=== PATIENT | male | born 1940 | race Hispanic/Latino ===

== ENCOUNTER → 2018-06-19 | Outpatient (CLI) | payer OTHER ==
[~2018-06-19] MED LIST: ATOR20TA65 PO; BENA20TA10 PO; CARV25TA PO; CLON0.2T PO; COSO10OS OU; GABA-529 PO; GLIP10TA9 PO; HYDR-4154 PO; HYDR12.54 PO; LEVO100T12 PO; LINA1TAB5 PO; TAMS0.4C32 PO; XALA2.5OS OU
== END | disposition home or self-care (01) ==
LOC: SHCH 11:16
PROVIDERS: ATTEND Internal Medicine Cardiovascular Disease
DX: I65.23 Occlusion and stenosis of bilateral carotid arteries (principal)
CPT/HCPCS: 93880

== ENCOUNTER → 2018-06-26 | Outpatient (CLI) | payer OTHER | END | disposition home or self-care (01) | LOC: SHCH 09:06 | PROVIDERS: ATTEND Internal Medicine Cardiovascular Disease | DX: I11.9 Hypertensive heart disease without heart failure (principal) | CPT/HCPCS: 93306 ==

== ENCOUNTER → 2019-05-25 | Outpatient (CLI) | payer OTHER | END | disposition home or self-care (01) | LOC: SHCH 09:24 | PROVIDERS: ATTEND Internal Medicine Cardiovascular Disease | DX: I65.23 Occlusion and stenosis of bilateral carotid arteries (principal) | CPT/HCPCS: 93880 ==

== ENCOUNTER → 2020-11-07 | Outpatient (CLI) | payer MEDICARE | END | disposition home or self-care (01) | LOC: SHCH 13:28 | PROVIDERS: ATTEND Internal Medicine Cardiovascular Disease | DX: R09.89 Other specified symptoms and signs involving the circulatory and respiratory systems (principal) | CPT/HCPCS: 93880 ==

== ENCOUNTER → 2021-05-24 | Outpatient (CLI) | payer MEDICARE ==
[~2021-05-24] MED LIST changes: +BENA-8 PO; -BENA20TA10 PO
== END | disposition home or self-care (01) ==
LOC: SHCH 11:01
PROVIDERS: ATTEND Internal Medicine Cardiovascular Disease
DX: I65.23 Occlusion and stenosis of bilateral carotid arteries (principal)
CPT/HCPCS: 93880

== ENCOUNTER → 2021-08-23 | Outpatient (CLI) | payer MEDICARE ==
[~2021-08-23] MED LIST changes: +IOHEXOL-350 50ML VIAL IV ONE
== END | disposition home or self-care (01) ==
LOC: RAH 07:39
PROVIDERS: ATTEND Internal Medicine Cardiovascular Disease
DX: I65.22 Occlusion and stenosis of left carotid artery (principal)
CPT/HCPCS: 70498; Q9967

== ENCOUNTER 2022-05-31 21:30 | Inpatient (IN) | payer MEDICARE ==
[~2022-05-31] VITALS: Ht 172.7 cm; Wt 77.8 kg
[~2022-05-31 21:30] MED LIST changes: -IOHEXOL-350 50ML VIAL IV ONE
[2022-05-31 22:26] LABS: BASOPHILS % (AUTO) 0.8 % (0.0-5.0); EOSINOPHILS % (AUTO) 5.5 % (0.0-8.0); HEMATOCRIT 34.1 % (42-54); LYMPHOCYTES % (AUTO) 26.6 % (21.0-51.0); MEAN CORPUSCULAR HEMOGLOBIN 28.1 pg (27.0-33.0); MEAN CORPUSCULAR VOLUME 87.9 fL (79-99); MONOCYTES % (AUTO) 8.5 % (3.0-13.0); NEUTROPHILS % (AUTO) 58.5 % (40.0-77.0); PLATELET COUNT (AUTO) 213 K/uL (130-400); RED BLOOD CELL COUNT(AUTO) 3.88 MIL/uL (4.50-6.20); RED CELL DISTRIBUTION WIDTH 14.7 % (11.0-15.5); WHITE BLOOD COUNT (AUTO) 7.2 K/uL (4.8-10.8)
[2022-05-31] MEDS ORDERED: HYDRALAZINE 20MG/ML VIAL IV ONE (22:30)
[2022-05-31 22:35] LABS: CREATININE 1.2 mg/dL (0.5-1.5); POTASSIUM 4.6 mmol/L (3.5-5.1)
[2022-05-31 22:37] LABS: INR 0.96 (0.85-1.15); PROTHROMBIN TIME 10.5 SEC (9.6-11.6)
[2022-05-31 22:38] LABS: PARTIAL THROMBOPLASTIN TIME 28.5 SEC (26.3-35.5)
[2022-05-31 22:41] LABS: ALBUMIN 3.7 g/dL (3.5-5.0); TOTAL PROTEIN, SERUM 7.4 g/dL (6.0-8.3)
[2022-05-31 22:46] LABS: APPEARANCE,URINE CLEAR (CLEAR); BILIRUBIN,URINE NEGATIVE (NEGATIVE); COLOR,URINE COLORLESS (YELLOW); GLUCOSE, URINE (UA) NEGATIVE (NEGATIVE); KETONES,URINE NEGATIVE (NEGATIVE); LEUKOCYTE ESTERASE ,URINE NEGATIVE Leu/uL (NEGATIVE); NITRATE,URINE NEGATIVE (NEGATIVE); OCCULT BLOOD,URINE NEGATIVE (NEGATIVE); PH,URINE 6.5 (5.0-8.0); PROTEIN,URINE 30 mg/dL (NEGATIVE); UROBILINOGEN,URINE 0.2 mg/dL (0.2-1.0)
[2022-05-31 22:58] LABS: B-TYPE NATRIURETIC PEPTIDE 51 pg/mL (0-100)
[2022-05-31] MEDS ORDERED: ASPIRIN 81MG CHEW TAB ONE (23:56)
[2022-06-01] VITALS (7 sets, daily range): BP systolic 121–167; BP diastolic 58–79
[2022-06-01] MEDS ORDERED: ACETAMINOPHEN 325 MG TAB PO PRN (00:30)
[2022-06-01] MEDS ORDERED: LABETALOL 20MG SYG IV PRN (00:30)
[2022-06-01] MEDS ORDERED: HYDRALAZINE 20MG/ML VIAL IV PRN (00:30)
[2022-06-01] MEDS ORDERED: HEPARIN 5,000 UNIT VIAL SQ PRN (00:30)
[2022-06-01] MEDS ORDERED: TEMAZEPAM 15 MG CAPSULE PO PRN (00:30)
[2022-06-01] MEDS: PHARMACY COMMUNICATION MISC SCH ×4 (00:30→06:30)
[2022-06-01] MEDS ORDERED: ACETAMINOPHEN 650 MG SUPPOSITORY RC PRN (00:30)
[2022-06-01] MEDS ORDERED: HEPARIN 25,000 UNITS/250ML D5W 250 ML IV SCH (00:30)
[2022-06-01] MEDS ORDERED: ONDANSETRON 4MG INJ IVP PRN (00:30)
[2022-06-01] MEDS: NITROGLYCERIN 1GM OINT 1 INCH/1GM TD SCH ×3 (01:37→16:30)
[2022-06-01] MEDS ORDERED: AMLO-257 PO (02:45)
[2022-06-01] MEDS ORDERED: ASPI-1197 PO (02:45)
[2022-06-01] MEDS ORDERED: FURO20TA4 PO (02:45)
[2022-06-01] MEDS ORDERED: TERA10CA4 PO (02:45)
[2022-06-01] MEDS: ENOXAPARIN SODIUM 80 MG/0.8 ML SQ SCH ×3 (02:58→21:12)
[2022-06-01] MEDS: INSULIN HUMULIN R 100 UNIT/ML 3ML SQ SCH ×4 (05:49→21:00)
[2022-06-01] MEDS ORDERED: ASPIRIN 81MG CHEW TAB PO SCH (06:45)
[2022-06-01 07:02] LABS: HEMATOCRIT 32.6 % (42-54); MEAN CORPUSCULAR HEMOGLOBIN 28.5 pg (27.0-33.0); MEAN CORPUSCULAR HGB CONC 32.2 g/dL (32.0-36.0); MEAN CORPUSCULAR VOLUME 88.3 fL (79-99); RED BLOOD CELL COUNT(AUTO) 3.69 MIL/uL (4.50-6.20); RED CELL DISTRIBUTION WIDTH 14.4 % (11.0-15.5); WHITE BLOOD COUNT (AUTO) 7.2 K/uL (4.8-10.8)
[2022-06-01 07:33] LABS: MAGNESIUM 1.2 mg/dL (1.80-2.40); PHOSPHORUS 2.7 mg/dL (2.5-4.9); POTASSIUM 3.9 mmol/L (3.5-5.1)
[2022-06-01] MEDS ORDERED: METOPROLOL TARTRATE 25 MG TAB PO SCH (09:00)
[2022-06-01] MEDS ORDERED: ENOXAPARIN SODIUM 80 MG/0.8 ML SQ SCH (09:00)
[2022-06-01] MEDS: BENAZEPRIL HCL 10 MG TABLET PO SCH ×2 (11:39→21:10)
[2022-06-01] MEDS ORDERED: PANTOPRAZOLE 40 MG/VIAL IVP SCH (21:00)
[2022-06-01] MEDS ORDERED: SIMVASTATIN 20 MG TABLET PO SCH (21:00)
[2022-06-01] MEDS ORDERED: MAGNESIUM 2GM PREMIX 50ML 50 ML IV PRN (22:30)
[2022-06-01] MEDS ORDERED: POTASSIUM CHLORIDE 20MEQ/100ML 100 ML IV PRN ×2 (22:30)
[2022-06-01] MEDS ORDERED: KCL 20 MEQ ERTAB PO PRN (22:30)
[2022-06-01] MEDS ORDERED: LIDOCAINE HCL-MPF 1% 2ML VIAL IV PRN ×2 (22:30)
[2022-06-01] MEDS ORDERED: POTASSIUM CHLORIDE 10% ELIXIR 20 MEQ/15 ML UDCUP PO PRN (22:30)
[2022-06-02] MEDS: NITROGLYCERIN 1GM OINT 1 INCH/1GM TD SCH ×2 (00:07→09:05)
[2022-06-02 02:09] LABS: BASOPHILS % (AUTO) 0.5 % (0.0-5.0); EOSINOPHILS % (AUTO) 3.6 % (0.0-8.0); HEMATOCRIT 28.9 % (42-54); LYMPHOCYTES % (AUTO) 26.9 % (21.0-51.0); MEAN CORPUSCULAR HEMOGLOBIN 28.1 pg (27.0-33.0); MEAN CORPUSCULAR HGB CONC 32.2 g/dL (32.0-36.0); MEAN CORPUSCULAR VOLUME 87.3 fL (79-99); MONOCYTES % (AUTO) 8.1 % (3.0-13.0); NEUTROPHILS % (AUTO) 60.6 % (40.0-77.0); PLATELET COUNT (AUTO) 196 K/uL (130-400); RED BLOOD CELL COUNT(AUTO) 3.31 MIL/uL (4.50-6.20); RED CELL DISTRIBUTION WIDTH 14.6 % (11.0-15.5); WHITE BLOOD COUNT (AUTO) 7.3 K/uL (4.8-10.8)
[2022-06-02 02:32] LABS: MAGNESIUM 1.4 mg/dL (1.80-2.40)
[2022-06-02 04:18] VITALS: BP 150/72
[2022-06-02] MEDS: INSULIN HUMULIN R 100 UNIT/ML 3ML SQ SCH (05:45)
[2022-06-02 08:10] VITALS: BP 156/65
[2022-06-02] MEDS: BENAZEPRIL HCL 10 MG TABLET PO SCH (09:00)
[2022-06-02] MEDS ORDERED: ASPIRIN 81MG CHEW TAB PO SCH (09:00)
[2022-06-02] MEDS ORDERED: METOPROLOL SUCCINATE 25 MG TAB.SR.24H PO SCH (09:00)
[2022-06-02] MEDS: ENOXAPARIN SODIUM 80 MG/0.8 ML SQ SCH (09:03)
[2022-06-02 09:08] LABS: MAGNESIUM 1.6 mg/dL (1.80-2.40)
[2022-06-02] MEDS ORDERED: NITR0.4T50 SL (10:10)
[2022-06-02] MEDS ORDERED: POTA-79 PO (10:10)
== END 2022-06-02 12:10 | disposition home or self-care (01) | DRG 281 ==
LOC: EDH 21:30 → EDHIP 06-01 00:16 → OBSVTOIN 06-01 00:16 → 2AH 06-01 02:11
PROVIDERS: ADMIT Internal Medicine Critical Care Medicine; ATTEND Internal Medicine Critical Care Medicine
DX: I16.0 Hypertensive urgency (principal); I21.A1 Myocardial infarction type 2; I16.1 Hypertensive emergency; D64.9 Anemia, unspecified; E03.9 Hypothyroidism, unspecified; E78.00 Pure hypercholesterolemia, unspecified; E11.65 Type 2 diabetes mellitus with hyperglycemia; I10 Essential (primary) hypertension; I25.10 Atherosclerotic heart disease of native coronary artery without angina pectoris; I44.0 Atrioventricular block, first degree; Z79.82 Long term (current) use of aspirin; Z79.899 Other long term (current) drug therapy; Z95.5 Presence of coronary angioplasty implant and graft; Z83.3 Family history of diabetes mellitus; Z82.49 Family history of ischemic heart disease and other diseases of the circulatory system
CPT/HCPCS: 36415; 71045; 80048; 80053; 80061; 81003; 82550; 82948; 83735; 83874; 83880; 84100; 84484; 85025; 85027; 85610; 85730; 93005; 93306; 93356; 96365; 96372; 96375; G0378; J0360; J1644; J1650; J1815; J3475

== ENCOUNTER 2022-10-19 11:20 | Inpatient (IN) | payer MEDICARE ==
[~2022-10-19] VITALS: Ht 172.7 cm; Wt 78.0 kg
[~2022-10-19 11:20] MED LIST changes: +AMLO-257 PO; +ASPI-1197 PO; -CLON0.2T PO; +FURO20TA4 PO; -HYDR-4154 PO; -HYDR12.54 PO; +NITR0.4T50 SL; +POTA-364 PO; +TERA10CA4 PO
[2022-10-19 11:56] LABS: BASOPHILS % (AUTO) 0.6 % (0.0-5.0); EOSINOPHILS % (AUTO) 4.4 % (0.0-8.0); HEMATOCRIT 30.9 % (42-54); LYMPHOCYTES % (AUTO) 20.3 % (21.0-51.0); MEAN CORPUSCULAR HEMOGLOBIN 27.7 pg (27.0-33.0); MEAN CORPUSCULAR HGB CONC 31.4 g/dL (32.0-36.0); MEAN CORPUSCULAR VOLUME 88.3 fL (79-99); MONOCYTES % (AUTO) 8.7 % (3.0-13.0); NEUTROPHILS % (AUTO) 65.5 % (40.0-77.0); PLATELET COUNT (AUTO) 201 K/uL (130-400); RED CELL DISTRIBUTION WIDTH 15.4 % (11.0-15.5); WHITE BLOOD COUNT (AUTO) 6.3 K/uL (4.8-10.8)
[2022-10-19 12:13] LABS: INR 0.98 (0.85-1.15); PROTHROMBIN TIME 10.7 SEC (9.6-11.6)
[2022-10-19 12:15] LABS: PARTIAL THROMBOPLASTIN TIME 27.9 SEC (26.3-35.5)
[2022-10-19 12:36] LABS: ALBUMIN 3.6 g/dL (3.5-5.0); CREATININE 1.4 mg/dL (0.5-1.5); POTASSIUM 4.6 mmol/L (3.5-5.1)
[2022-10-19 12:42] LABS: APPEARANCE,URINE CLEAR (CLEAR); BILIRUBIN,URINE NEGATIVE (NEGATIVE); COLOR,URINE COLORLESS (YELLOW); GLUCOSE, URINE (UA) 300 mg/dL (NEGATIVE); KETONES,URINE NEGATIVE (NEGATIVE); LEUKOCYTE ESTERASE ,URINE NEGATIVE Leu/uL (NEGATIVE); NITRATE,URINE NEGATIVE (NEGATIVE); OCCULT BLOOD,URINE NEGATIVE (NEGATIVE); PH,URINE 5.5 (5.0-8.0); PROTEIN,URINE NEGATIVE (NEGATIVE); UROBILINOGEN,URINE 0.2 mg/dL (0.2-1.0)
[2022-10-19 12:42] LABS: B-TYPE NATRIURETIC PEPTIDE 72 pg/mL (0-100)
[2022-10-19 12:46] LABS: RBC,URINE 0-1 /HPF (0-1); WBC,URINE 0-1 /HPF (0-1)
[2022-10-19] MEDS ORDERED: MAGNESIUM OXIDE 400 MG TABLET PO ONE (14:00)
[2022-10-19] MEDS ORDERED: 0.9%NACL 1000ML 1,000 ML IV SCH (19:30)
[2022-10-19] MEDS ORDERED: ONDANSETRON 4MG INJ IVP PRN ×2 (19:30)
[2022-10-19] MEDS ORDERED: ACETAMINOPHEN 650 MG SUPPOSITORY RC PRN ×2 (19:30)
[2022-10-19] MEDS ORDERED: MAGNESIUM 2GM PREMIX 50ML 50 ML IV PRN (20:00)
[2022-10-19] MEDS: FAMOTIDINE 20MG VIAL IV SCH (21:08)
[2022-10-19] MEDS: ATORVASTATIN 40 MG TABLET PO SCH (21:08)
[2022-10-19] MEDS ORDERED: CARV12.511 PO (21:21)
[2022-10-19] MEDS ORDERED: LINA1TAB5 PO (21:21)
[2022-10-19] MEDS ORDERED: BENA-8 PO (21:21)
[2022-10-19] MEDS ORDERED: SENN-31 PO (21:21)
[2022-10-19 22:35] VITALS: BP 145/76
[2022-10-20 04:02] VITALS: BP 130/53
[2022-10-20 04:04] LABS: MEAN CORPUSCULAR HEMOGLOBIN 27.6 pg (27.0-33.0); PLATELET COUNT (AUTO) 188 K/uL (130-400); RED BLOOD CELL COUNT(AUTO) 3.26 MIL/uL (4.50-6.20); RED CELL DISTRIBUTION WIDTH 15.3 % (11.0-15.5); WHITE BLOOD COUNT (AUTO) 6.5 K/uL (4.8-10.8)
[2022-10-20 04:29] LABS: CREATININE 1.1 mg/dL (0.5-1.5); MAGNESIUM 1.5 mg/dL (1.80-2.40); PHOSPHORUS 2.9 mg/dL (2.5-4.9); POTASSIUM 4.2 mmol/L (3.5-5.1)
[2022-10-20 04:42] LABS: HEMOGLOBIN A1C 7.5 % (4.0-6.0)
[2022-10-20 04:48] LABS: B-TYPE NATRIURETIC PEPTIDE 102 pg/mL (0-100)
[2022-10-20] MEDS: INSULIN HUMULIN R 100 UNIT/ML 3ML SQ SCH ×4 (06:00→20:36)
[2022-10-20 07:06] VITALS: BP 156/67
[2022-10-20] MEDS ORDERED: ASPIRIN 81MG CHEW TAB PO SCH (09:00)
[2022-10-20] MEDS: ENOXAPARIN SODIUM 30 MG/0.3 ML SQ SCH (09:43)
[2022-10-20 11:06] VITALS: BP 138/60
[2022-10-20 16:04] VITALS: BP 147/66
[2022-10-20 18:58] VITALS: BP 143/71
[2022-10-20] MEDS: BENAZEPRIL HCL 10 MG TABLET PO SCH (20:32)
[2022-10-20] MEDS: FAMOTIDINE 20MG VIAL IV SCH (20:32)
[2022-10-20] MEDS: CARVEDILOL 12.5 MG TABLET PO SCH (20:34)
[2022-10-20] MEDS: ATORVASTATIN 40 MG TABLET PO SCH (20:35)
[2022-10-20] MEDS ORDERED: SENNOSIDES PO SCH (21:00)
[2022-10-20] MEDS ORDERED: ATORVASTATIN 20 MG TABLET PO SCH (21:00)
[2022-10-20] MEDS ORDERED: DOCUSATE SODIUM PO SCH (21:00)
[2022-10-20] MEDS ORDERED: LATANOPROST 2.5 ML DROPS OU SCH (21:00)
[2022-10-20 23:23] VITALS: BP 167/80
[2022-10-21] VITALS (12 sets, daily range): BP systolic 123–193; BP diastolic 56–80
[2022-10-21] MEDS ORDERED: HYDRALAZINE 20MG/ML VIAL IV PRN (01:30)
[2022-10-21] MEDS: INSULIN HUMULIN R 100 UNIT/ML 3ML SQ SCH ×3 (05:49→16:30)
[2022-10-21] MEDS ORDERED: LEVOTHYROXINE 100 MCG TABLET PO SCH (07:30)
[2022-10-21] MEDS: BENAZEPRIL HCL 10 MG TABLET PO SCH (08:29)
[2022-10-21] MEDS: CARVEDILOL 12.5 MG TABLET PO SCH (08:30)
[2022-10-21] MEDS: ENOXAPARIN SODIUM 30 MG/0.3 ML SQ SCH (08:31)
[2022-10-21] MEDS ORDERED: METFORMIN HCL PO SCH (09:00)
[2022-10-21] MEDS ORDERED: ASPIRIN 81MG CHEW TAB PO SCH (09:00)
[2022-10-21] MEDS ORDERED: AMLODIPINE 5 MG TAB PO SCH (09:00)
[2022-10-21] MEDS ORDERED: LINAGLIPTIN PO SCH (09:00)
[2022-10-21] MEDS ORDERED: CLOPIDOGREL 75MG TAB PO SCH (09:00)
[2022-10-21] MEDS ORDERED: CLOP-31 PO (15:47)
[2022-10-21] MEDS ORDERED: AMLODIPINE 5 MG TAB PO STA ×2 (16:33→17:14)
[2022-10-21] MEDS ORDERED: AMLODIPINE 5 MG TAB PO ONE (17:00)
== END 2022-10-21 20:10 | disposition home or self-care (01) | DRG 65 ==
LOC: EDH 11:20 → OBSVTOIN 19:09 → EDHIP 19:09 → 2DH 22:29 → UNDODISIN 10-21 16:44
PROVIDERS: ADMIT Internal Medicine Critical Care Medicine; ATTEND Internal Medicine Critical Care Medicine
DX: I63.81 Other cerebral infarction due to occlusion or stenosis of small artery (principal); G81.91 Hemiplegia, unspecified affecting right dominant side; E86.0 Dehydration; E78.5 Hyperlipidemia, unspecified; E83.42 Hypomagnesemia; D64.9 Anemia, unspecified; E03.9 Hypothyroidism, unspecified; E11.9 Type 2 diabetes mellitus without complications; I10 Essential (primary) hypertension; I25.10 Atherosclerotic heart disease of native coronary artery without angina pectoris; R29.700 NIHSS score 0; E66.9 Obesity, unspecified; R60.0 Localized edema; Z88.6 Allergy status to analgesic agent; Z91.041 Radiographic dye allergy status; Z95.5 Presence of coronary angioplasty implant and graft; Z79.02 Long term (current) use of antithrombotics/antiplatelets; Z79.82 Long term (current) use of aspirin; Z83.3 Family history of diabetes mellitus; Z82.49 Family history of ischemic heart disease and other diseases of the circulatory system
CPT/HCPCS: 36415; 70450; 70544; 70547; 70551; 71045; 71250; 80048; 80053; 80061; 81001; 82550; 82746; 82948; 83036; 83090; 83721; 83735; 83880; 84100; 84484; 85025; 85027; 85378; 85384; 85610; 85730; 92522; 92610; 93005; 93306; 93356; 93880; 93970; 97039; 99291; G0378; J0360; J1650; J1815; J3475; J3490

== ENCOUNTER 2022-11-22 06:25 | Day surgery (SDC) | payer MEDICARE ==
[2022-11-20 13:39] LABS: BASOPHILS # (AUTO) 0.05 K/uL (0.00-0.20); BASOPHILS % (AUTO) 0.7 % (0.0-5.0); EOSINOPHILS # (AUTO) 0.24 K/uL (0.00-0.70); EOSINOPHILS % (AUTO) 3.5 % (0.0-8.0); HEMATOCRIT 31.6 % (42-54); IMMATURE GRANULOCYTE ABSOLUTE 0.02 K/uL (0-1); LYMPHOCYTES # (AUTO) 1.5 K/uL (1.0-4.8); MEAN CORPUSCULAR HEMOGLOBIN 28.1 pg (27.0-33.0); MEAN CORPUSCULAR VOLUME 90.5 fL (79-99); MONOCYTES # (AUTO) 0.6 K/uL (0.1-1.0); NEUTROPHILS # (AUTO) 4.5 K/uL (1.8-7.7); NEUTROPHILS % (AUTO) 65.5 % (40.0-77.0); PLATELET COUNT (AUTO) 184 K/uL (130-400); RED BLOOD CELL COUNT(AUTO) 3.49 MIL/uL (4.50-6.20); RED CELL DISTRIBUTION WIDTH 14.8 % (11.0-15.5); WHITE BLOOD COUNT (AUTO) 6.9 K/uL (4.8-10.8)
[2022-11-20 13:43] VITALS: BP 175/75; PULSE 58; RESP 14
[2022-11-20 13:49] LABS: CREATININE 1.2 mg/dL (0.5-1.5); POTASSIUM 5.4 mmol/L (3.5-5.1)
[2022-11-20 13:52] LABS: INR 0.97 (0.85-1.15); PROTHROMBIN TIME 11.3 SEC (9.6-11.6)
[2022-11-20 13:54] LABS: PARTIAL THROMBOPLASTIN TIME 28.8 SEC (26.3-35.5)
[~2022-11-22] VITALS: Ht 170.2 cm; Wt 80.5 kg
[2022-11-22] VITALS (20 sets, daily range): BP systolic 118–157; BP diastolic 49–81; PULSE 49–68; RESP 10–18
[~2022-11-22 06:25] MED LIST changes: +0.9%NACL 1000ML 1,000 ML IV SCH; +CLOP75TA32 PO; -COSO10OS OU; -GABA-529 PO; -GLIP10TA9 PO; -NITR0.4T50 SL; +PHARMACY COMMUNICATION MISC SCH; -POTA-364 PO; -TAMS0.4C32 PO
[2022-11-22 07:09] LABS: CREATININE 1.2 mg/dL (0.5-1.5); POTASSIUM 4.5 mmol/L (3.5-5.1)
[2022-11-22] MEDS ORDERED: LIDOCAINE HCL 2% VISCOUS 15 ML UDCUP ONE (08:36)
[2022-11-22] MEDS ORDERED: FENTANYL CITRATE PF 50 MCG/1 ML 2ML VIAL ONE (08:36)
[2022-11-22] MEDS ORDERED: MIDAZOLAM HCL 1 MG/ML 2ML VIAL ONE (08:37)
[2022-11-22] MEDS ORDERED: NALOXONE HCL 0.4 MG/1 ML ML ONE (08:38)
[2022-11-22] MEDS ORDERED: FLUMAZENIL 0.1MG/1ML 5ML VIAL IV ONE (08:38)
== END 2022-11-22 12:00 | disposition home or self-care (01) ==
LOC: DAH 06:25
PROVIDERS: ATTEND Internal Medicine Cardiovascular Disease
DX: Q21.12 Patent foramen ovale (principal); I08.3 Combined rheumatic disorders of mitral, aortic and tricuspid valves; I25.3 Aneurysm of heart; I25.10 Atherosclerotic heart disease of native coronary artery without angina pectoris; I10 Essential (primary) hypertension; E78.5 Hyperlipidemia, unspecified; I45.2 Bifascicular block; I25.2 Old myocardial infarction; E11.9 Type 2 diabetes mellitus without complications; Z86.73 Personal history of transient ischemic attack (TIA), and cerebral infarction without residual deficits; Z98.890 Other specified postprocedural states; Z79.899 Other long term (current) drug therapy; Z79.82 Long term (current) use of aspirin; Z79.01 Long term (current) use of anticoagulants
CPT/HCPCS: 80048 ×2; 85025; 85610; 85730; 36415 ×2; 93005; 93312; 82948; 93325; J3010; J7030; J2250; A4215; A4657; A4222; A4221; A4663; A4216; A4606; A4223 ×3; 99152; 99153; J2310; J3490; G0500

== ENCOUNTER 2023-01-04 14:21 | Emergency (ER) | payer MEDICARE ==
[~2023-01-04] VITALS: Ht 165.1 cm; Wt 78.9 kg
[~2023-01-04 14:21] MED LIST changes: -0.9%NACL 1000ML 1,000 ML IV SCH; -PHARMACY COMMUNICATION MISC SCH
[2023-01-04 18:48] VITALS: BP 124/68; PULSE 68; RESP 18; O2SAT 97
== END 2023-01-04 18:48 | disposition home or self-care (01) ==
LOC: EDH 14:21
DX: S30.0XXA Contusion of lower back and pelvis, initial encounter (principal); I10 Essential (primary) hypertension; E11.9 Type 2 diabetes mellitus without complications; Z79.82 Long term (current) use of aspirin; Z79.899 Other long term (current) drug therapy; Z98.890 Other specified postprocedural states; Z95.5 Presence of coronary angioplasty implant and graft; Z88.6 Allergy status to analgesic agent; W18.39XA Other fall on same level, initial encounter; Y93.89 Activity, other specified; Y92.89 Other specified places as the place of occurrence of the external cause; Y99.8 Other external cause status
CPT/HCPCS: 72192

== ENCOUNTER → 2023-06-12 | Outpatient (CLI) | payer MEDICARE | END | disposition home or self-care (01) | LOC: RAH 12:41 | PROVIDERS: ATTEND Family Medicine | DX: K40.90 Unilateral inguinal hernia, without obstruction or gangrene, not specified as recurrent (principal); R10.30 Lower abdominal pain, unspecified | CPT/HCPCS: 74176 ==

== ENCOUNTER → 2023-11-04 | Outpatient (CLI) | payer MEDICARE | END | disposition home or self-care (01) | LOC: SHCH 10:30 | PROVIDERS: ATTEND Internal Medicine Cardiovascular Disease | DX: I65.23 Occlusion and stenosis of bilateral carotid arteries (principal); R09.89 Other specified symptoms and signs involving the circulatory and respiratory systems | CPT/HCPCS: 93880 ==

== ENCOUNTER → 2024-07-05 | Outpatient (CLI) | payer MEDICARE ==
--- NOTE | 2024-07-05 15:45 | HMCIMG ---
CT PELVIS W/O CONTRAST HISTORY: Inguinal hernia COMPARISON: None TECHNIQUE: Multiple sequential axial images of the pelvis were obtained from the iliac crests through symphysis pubis. Patient was not given contrast through intravenous route. Oral contrast was not given. FINDINGS: There is right inguinal hernia with bowel content. No definite bowel obstruction is seen. There is diverticulosis. Tiny left inguinal hernia is seen with fat content. There are normal sized pelvic and inguinal lymph nodes. Fecal material seen throughout the colon. Diverticula are seen within the colon consistent with diverticulosis. No ascites is seen. Atherosclerotic changes are present. Pelvic sidewalls are symmetric bilaterally. Bladder is poorly distended with apparent wall thickening. IMPRESSION: 1. There is right inguinal hernia with bowel content. No definite bowel obstruction is seen. There is diverticulosis. CT was performed with one or more following dose reduction techniques: automated exposure control, adjustment of the mA and kv according to patient's size, or use of a iterative reconstruction technique.
== END | disposition home or self-care (01) ==
LOC: RAH 14:41
PROVIDERS: ATTEND Family Medicine
DX: N32.89 Other specified disorders of bladder (principal); K40.90 Unilateral inguinal hernia, without obstruction or gangrene, not specified as recurrent; K57.90 Diverticulosis of intestine, part unspecified, without perforation or abscess without bleeding; I70.90 Unspecified atherosclerosis
CPT/HCPCS: 72192

== ENCOUNTER → 2024-08-31 | Outpatient (CLI) | payer MEDICARE ==
[2024-08-31] MEDS: REGADENOSON 0.4 MG/5 ML PF SYG IVP ONE (12:20)
== END | disposition home or self-care (01) ==
LOC: SHCH 08:05
PROVIDERS: ATTEND Internal Medicine Cardiovascular Disease
DX: R06.02 Shortness of breath (principal); R06.00 Dyspnea, unspecified
CPT/HCPCS: 78452; 93017; J2785; A9500 ×2

== ENCOUNTER → 2025-02-02 | Outpatient (CLI) | payer MEDICARE ==
[2025-02-02 22:26] VITALS: PULSE 62; RESP 16
[2025-02-02 23:04] VITALS: PULSE 53; RESP 14
[2025-02-02 23:26] VITALS: PULSE 53; RESP 19
[2025-02-02 23:43] VITALS: PULSE 51; RESP 11
[2025-02-03] VITALS (11 sets, daily range): PULSE 48–56; RESP 8–17
== END | disposition home or self-care (01) ==
LOC: SLP 20:40
PROVIDERS: ATTEND Internal Medicine Cardiovascular Disease
DX: G47.33 Obstructive sleep apnea (adult) (pediatric) (principal)
CPT/HCPCS: 95811